=== PATIENT | male | born 1990 ===

== ENCOUNTER → 2018-10-20 21:09 | Outpatient (REF) | payer BC, SELFPAY ==
[2018-10-20 22:16] LABS: Alanine Aminotransferase 48 IU/L (21-72); Albumin 4.9 g/dL (3.5-5.0); Albumin Globulin Ratio 1.2 (1.0-2.8); Alkaline Phosphatase 52 U/L (38-126); Aspartate Aminotransferase 38 IU/L (17-59); Bilirubin Total 0.9 mg/dL (0.2-1.3); Blood Urea Nitrogen 10 mg/dL (9-20); Calcium 9.6 mg/dL (8.4-10.2); Carbon Dioxide 26 mmol/L (22-32); Chloride 98 mmol/L (98-107); Estimated Glomerular Filt Rate > 60.0 mL/min (>60); Glucose 108 mg/dL (70-100); HEMOLYSIS < 15 (0-50); Potassium 4.4 mmol/L (3.4-5.1); Sodium 140 mmol/L (137-145); Total Protein 8.9 g/dL (6.3-8.2)
[2018-10-20 22:20] LABS: Monotest Negative (Negative)
[2018-10-21 03:59] LABS: Hematocrit 45.7 % (41-53); Mean Corpuscular Volume 79.8 fL (80-100); Red Blood Cell Count 5.73 X10^6/uL (4.5-5.9); White Blood Cell Count 5.5 X10^3/uL (4.5-11.0)
[2018-10-21 04:00] LABS: Add Manual Diff / Slide Review YES; Mean Corpuscular HGB Conc 32.8 % (30-36); Mean Corpuscular Hemoglobin 26.1 PG (26-34); Platelet Count 131 X10^3/uL (150-400); Red Cell Distribution Width 14.8 % (11.6-14.8)
[2018-10-21 04:02] LABS: RBC Morphology Normal Morphology
[2018-10-24 09:18] LABS: CMV IgM Antibody < 30.00 AU/mL (< 30.00); EBV EBNA Antibody IgG > 600.00 U/mL (< 18.00); EBV Virus IgM Ab < 36.00 U/mL (< 36.00); EVB Early IgG < 9.00 U/mL (< 9.00)
== END ==
LOC: LAB 21:09
PROVIDERS: Visit Provider Physician Assistant
DX: R50.9 Fever, unspecified (principal); Z13.89 Encounter for screening for other disorder; R53.83 Other fatigue; M79.10 Myalgia, unspecified site; R05 Cough
CPT/HCPCS: 36415; 80053; 85025; 86318; 86644; 86645; 86663; 86664; 86665

== ENCOUNTER → 2018-11-13 21:26 | Outpatient (REF) | payer BC, SELFPAY ==
[2018-11-13 22:05] LABS: Add Manual Diff / Slide Review NO; Alanine Aminotransferase 26 IU/L (21-72); Albumin 4.2 g/dL (3.5-5.0); Albumin Globulin Ratio 1.2 (1.0-2.8); Alkaline Phosphatase 46 U/L (38-126); Aspartate Aminotransferase 31 IU/L (17-59); BUN Creatinine Ratio 12.5 (6-22); Basophils Absolute Auto 0 /uL (0-100); Basophils Percent Auto 0.7 % (0-2); Bilirubin Total 0.7 mg/dL (0.2-1.3); Blood Urea Nitrogen 10 mg/dL (9-20); Calcium 9.2 mg/dL (8.4-10.2); Carbon Dioxide 28 mmol/L (22-32); Chloride 102 mmol/L (98-107); Eosinophils Absolute Auto 100 /uL (0-450); Eosinophils Percent Auto 1.1 % (2-4); Estimated Glomerular Filt Rate > 60.0 mL/min (>60); Globulin 3.5 g/dL (1.7-4.1); Glucose 91 mg/dL (70-100); HEMOLYSIS < 15 (0-50); Hematocrit 39.7 % (41-53); Hemoglobin 12.7 g/dL (13.5-17.5); Lymphocytes Absolute Auto 1800 /uL (1100-4500); Lymphocytes Percent Auto 35.3 % (25-40); Mean Corpuscular HGB Conc 32.1 % (30-36); Mean Corpuscular Hemoglobin 25.8 PG (26-34); Mean Corpuscular Volume 80.4 fL (80-100); Monocytes Absolute Auto 300 /uL (0-900); Monocytes Percent Auto 6.6 % (3-14); Neutrophils Absolute Auto 3000 /uL (1500-7000); Neutrophils Percent Auto 56.3 % (50-75); Platelet Count 165 X10^3/uL (150-400); Potassium 4.3 mmol/L (3.4-5.1); Red Blood Cell Count 4.94 X10^6/uL (4.5-5.9); Red Cell Distribution Width 15.5 % (11.6-14.8); Sodium 140 mmol/L (137-145); Total Protein 7.7 g/dL (6.3-8.2); White Blood Cell Count 5.2 X10^3/uL (4.5-11.0)
== END ==
LOC: LAB 21:26
PROVIDERS: Visit Provider Physician Assistant
DX: R50.9 Fever, unspecified (principal); D69.1 Qualitative platelet defects; R79.9 Abnormal finding of blood chemistry, unspecified
CPT/HCPCS: 36415; 80053; 85025